=== PATIENT | male | born 1975 | race Two or more races ===

== ENCOUNTER 2016-10-29 12:33 | Emergency (ER) | payer SELFPAY ==
[2016-10-29 12:48] VITALS: TEMP 98.3; BMI 33.9
--- NOTE | 2016-10-29 13:27 | PDOC ---
History of Present Illness - General Chief Complaint: Blood Pressure Problem Stated Complaint: knee, shoulder pain,high bp Time Seen by Provider: 10/29/16 13:18 History Source: Patient Exam Limitations: No Limitations - History of Present Illness Initial Comments: 10/29/16 15:20 40-year-old male presents to the emergency room with complaints of worsening left knee pain and right shoulder over the past few weeks. 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 Patient denies difficulty ambulating or limited range of motion or radiation of pain. Timing/Duration: getting worse Severity: mild Associated Symptoms: denies: chest pain, cough, diaphoresis, fever/chills, headaches, loss of appetite Past History - Travel Traveled outside of the country in the last 30 days: No Close contact w/someone who was outside of country & ill: No - Past Medical History Allergies/Adverse Reactions: Allergies Allergy/AdvReac Type Severity Reaction Status Date / Time No Known Allergies Allergy Verified 10/29/16 12:44 Home Medications: Ambulatory Orders Divalproex [Depakote -] 1,500 mg PO DAILY 06/22/15 Oxycodone HCl/Acetaminophen [Percocet 5-325 mg Tablet] 1 tab PO Q6H PRN #12 tablet MDD 4 tabs 06/22/15 HTN: Yes (non complient) Suicide Attempt (Hx): No Seizures: Yes - Immunization History Immunization Up to Date: No - Psycho/Social/Smoking Cessation Hx Anxiety: No Suicidal Ideation: No Smoking History: Never smoked Have you smoked in the past 12 months: Yes Number of Cigarettes Smoked Daily: 7 Information on smoking cessation initiated: Yes Hx Alcohol Use: No Drug/Substance Use Hx: No Substance Use Type: None Patient Lives Alone: No Lives with/in: spouse/SO Review of Systems - Review of Systems Able to Perform ROS?: Yes Constitutional: No: Symptoms Reported HEENTM: No: Symptoms Reported Respiratory: No: Symptoms reported Cardiac (ROS): No: Symptoms Reported ABD/GI: No: Symptoms Reported : No: Symptoms Reported Musculoskeletal: Yes: Symptoms Reported, Joint Pain (rt shoulder and left knee) Integumentary: No: Symptoms Reported *Physical Exam - Vital Signs Last Vital Signs Temp Pulse Resp BP Pulse Ox 98.3 F 58 L 16 187/110 100 10/29/16 12:45 10/29/16 12:45 10/29/16 12:45 10/29/16 12:45 10/29/16 12:45 - Physical Exam General Appearance: Yes: Nourished, Appropriately Dressed. No: Apparent Distress HEENT: positive: [place] Neck: positive: Supple, Other (no jvd) Respiratory/Chest: positive: Lungs Clear, Normal Breath Sounds. negative: Respiratory Distress, Accessory Muscle Use Cardiovascular: positive: Regular Rhythm, Regular Rate. negative: Murmur Gastrointestinal/Abdominal: positive: Soft. negative: Tenderness Musculoskeletal: negative: CVA Tenderness Extremity: positive: Normal Capillary Refill, Normal Inspection, Normal Range of Motion (but with crepitus upon lateral raise). negative: Tender (over lt meniscus. NO rt shoulder tenderness), Pedal Edema Integumentary: positive: Normal Color, Warm, Moist Neurologic: positive: Normal Mood/Affect, Motor Strength 5/5 (ambulatory) Medical Decision Making - Medical Decision Making 10/29/16 15:30 Patient complains of left knee and right shoulder pain. Patient on exam has tenderness over her left left meniscus with no edema or increased warmth. Patient on exam also with noted crepitus at the right shoulder joint. Patient ordered for Percocet one tablet and one tablet of 0.1 mg of clonidine. Patient is stating will not take medication upon discharge but will take a clonidine here in the ER. Patient will be given referral to Dr. Priest at the clinic and a prescription for Percocet. *DC/Admit/Observation/Transfer Diagnosis at time of Disposition: Uncontrolled hypertension Injury of meniscus of knee Qualifiers: Encounter type: initial encounter Laterality: left Qualified Code(s): S83.8X2A - Sprain of other specified parts of left knee, initial encounter - Discharge Dispostion Disposition: HOME Condition at time of disposition: Good - Referrals Referrals: Kiet Vieira MD [Primary Care Provider] - Corina Hutton MD [Staff Physician] - Woo Espinoza MD [Staff Physician] - - Patient Instructions Printed Discharge Instructions: DI for High Blood Pressure, DI for Meniscal Tear Additional Instructions: Take Percocet as needed for pain. Please also follow up with referred physician to discuss today's visit and elevated blood pressure. Also follow-up with referred orthopedist.
[2016-10-29] MEDS ORDERED: cloNIDine HCL 0.1 MG TABLET PO ONE (14:52)
[2016-10-29] MEDS ORDERED: cloNIDine HCL 0.1 MG TABLET ONE (14:58)
[2016-10-29 16:15] VITALS: BP 176/112; PULSE 68
== END 2016-10-29 15:54 | disposition home or self-care (01) ==
LOC: JER 12:33
DX: I10 Essential (primary) hypertension (principal); S83.8X2A Sprain of other specified parts of left knee, initial encounter; X50.0XXA Overexertion from strenuous movement or load, initial encounter; Y93.H3 Activity, building and construction; Y92.69 Other specified industrial and construction area as the place of occurrence of the external cause; Y99.0 Civilian activity done for income or pay
CPT/HCPCS: 99282-25

== ENCOUNTER 2021-11-28 13:21 | Emergency (ER) | payer OTHER ==
[2021-11-28 13:33] VITALS: BP 128/74; PULSE 92; RESP 18; TEMP 98.2; BMI 30.5
[2021-11-28] MEDS ORDERED: KETOROLAC TROMETHAMINE 30 MG/1 ML VIAL IM ONE (14:33)
[2021-11-28] MEDS ORDERED: LIDOCAINE 5% TOPICAL PATCH TP ONE (14:33)
[2021-11-28] MEDS ORDERED: KETOROLAC TROMETHAMINE 30 MG/1 ML VIAL ONE (14:36)
[2021-11-28] MEDS ORDERED: METHOCARBAMOL 500 MG TABLET PO ONE (14:39)
[2021-11-28] MEDS ORDERED: METHOCARBAMOL 500 MG TABLET ONE (14:40)
[2021-11-28] MEDS ORDERED: LIDOCAINE 5% TOPICAL PATCH ONE (15:12)
[2021-11-28] MEDS ORDERED: LIDOCAINE PATCH REMOVAL MC SCH (22:00)
== END 2021-11-28 16:23 | disposition home or self-care (01) ==
LOC: JERFT 13:21
PROC: 3E0233Z Introduction of Anti-inflammatory into Muscle, Percutaneous Approach (ICD-10-PCS; principal; 2021-11-28)
DX: M25.462 Effusion, left knee (principal)
CPT/HCPCS: 73562-TC-LT-FY; 93971-TC; 96372; 99284-25